=== PATIENT | female | born 1990 | race Caucasian/White ===

== ENCOUNTER → 2020-11-10 10:45 | Outpatient (CLI) | payer OTHER, SELFPAY ==
--- NOTE | ~2020-11-10 | US_ITS ---
EXAMINATION: US pelvic complete DATE: 11/10/2020 11:19 INDICATION: Abnormal uterine bleeding Comparison:Ultrasound dated 05/30/2019 TECHNIQUE: Multiple transabdominal sonographic images of the pelvis performed. FINDINGS: The uterus measures 7.7 x 4.1 x 6.6 cm. The endometrial complex measures 8 mm. The right ovary measures 3.1 x 1.7 x 2.6 cm and the left ovary measures 2.7 x 1.7 x 2.2 cm. There ar e small follicles in each ovary. Normal doppler signal in both ovaries. There is trace free fluid in the pelvis. There are no abnormal masses seen on either side. IMPRESSION: 1. Unremarkable pelvic ultrasound. Reviewed, dictated and finalized at location A.
== END ==
PROVIDERS: Visit Provider Nurse Practitioner
DX: N93.9 Abnormal uterine and vaginal bleeding, unspecified (principal)
CPT/HCPCS: 76856